=== PATIENT | female | born 1995 | race American Indian/Alaskan Native ===

== ENCOUNTER 2016-12-01 09:18 | Emergency (ER) | payer BC, MEDICAID ==
[2016-12-01 09:33] VITALS: BP 132/55
[2016-12-01 09:55] LABS: Basophils % (Auto) 0.8 % (0.0-1.8); Eosinophils % (Auto) 1.4 % (0.0-4.3); Hematocrit 34.7 % (30.3-42.9); Hemoglobin 11.6 gm/dl (10.1-14.3); Mean Corpuscular HGB Conc 34 % (30-34); Mean Corpuscular Hemoglobin 28 pg (28-32); Mean Corpuscular Volume 84 fl (79-97); Platelet Count 293 K/mm3 (140-440); Red Blood Count 4.15 M/mm3 (3.65-5.03); Red Cell Distribution Width 13.7 % (13.2-15.2); White Blood Count 5.6 K/mm3 (4.5-11.0)
[2016-12-01 10:11] LABS: Blood Urea Nitrogen 9 mg/dL (7-17); Calcium 8.8 mg/dL (8.4-10.2); Carbon Dioxide 25 mmol/L (22-30); Glucose 71 mg/dL (65-100)
[2016-12-01 10:12] LABS: Anion Gap 15 mmol/L; Chloride 101.4 mmol/L (98-107); Potassium 4.3 mmol/L (3.6-5.0); Sodium 137 mmol/L (137-145)
--- NOTE | 2016-12-01 11:03 | XRay Report ---
ROUTINE CHEST, TWO VIEWS: HISTORY: chest pain. The trachea, heart, mediastinal contour, lung patel and bony thorax are unremarkable. IMPRESSION: Unremarkable chest x-ray.
[2016-12-01] MEDS: ASPIRIN PO SCH ×2 (13:10→14:24)
[2016-12-01 13:53] LABS: Urine Drugs of Abuse Note Disclamer
[2016-12-01 14:07] LABS: Bacteria,Urine 1+ /HPF (Negative); Bilirubin,Urine NEG (Negative); Blood,Urine NEG (Negative); Ketones,Urine TR mg/dL (Negative); Leukocyte Esterase,Urine TR (Negative); Mucus,Urine 1+ /HPF; Nitrite,Urine NEG (Negative); Protein,Urine <15 mg/dL mg/dL (Negative); Urobilinogen,Urine < 2.0 mg/dL (<2.0)
--- NOTE | 2016-12-01 14:50 | Emergency Department Report ---
HPI - General Chief Complaint: Chest Pain Time Seen by Provider: 12/01/16 10:43 - HPI HPI: 21-year-old -[place] female presents to the ED with chest pain chest pain, onset 5 hours prior to evaluation while at rest, Location: mid chest Radiation: none, Severity now (0-10): 2, Severity at worst (0-10): 8 Duration: 5 minutes characterized as: sharp. The pain is relieved with aspirin, Patient denies exertional pain, patient denies pleuritic pain. Patient denies associated symptoms, such as nausea/vomiting, no diaphoresis, no shortness of breath. 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 - Surgical History Past Surgical History?: Yes Additional Surgical History: L Breast biopsy - Social History Smoking Status: Never Smoker - Medications Home Medications: Home Medications Medication Instructions Recorded Confirmed Last Taken Type Acetaminophen/Codeine 1 tab PO Q6H PRN 03/28/14 03/28/14 03/28/14 06:00 History [Acetaminophen-Codeine #3 TAB] Phenylephrine/Dm/Acetaminop/GG 20 ml PO Q4HR #180 ml 03/17/15 Unknown Rx [Mucinex Vdyq-Abx-Rtyhdzfwjg Lq] traMADol [Ultram] 50 mg PO Q6HR PRN #15 tablet 12/01/16 Unknown Rx ED Review of Systems ROS: Stated complaint: CHEST PAIN/VOMITTING /SHARP PAIN IN CHEST Other details as noted in HPI Comment: All other systems reviewed and negative Gastrointestinal: abdominal pain Physical Exam - Physical Exam Vital Signs: Vital Signs 12/01/16 12/01/16 09:29 10:36 Temperature 98.3 F Pulse Rate 82 Respiratory 16 18 Rate Blood Pressure 132/55 O2 Sat by Pulse 100 Oximetry ED Course Vital Signs 12/01/16 12/01/16 09:29 10:36 Temperature 98.3 F Pulse Rate 82 Respiratory 16 18 Rate Blood Pressure 132/55 O2 Sat by Pulse 100 Oximetry ED Medical Decision Making - Lab Data Result diagrams: 12/01/16 09:38 12/01/16 09:38 Critical care attestation.: If time is entered above; I have spent that time in minutes in the direct care of this critically ill patient, excluding procedure time. ED Disposition Clinical Impression: Chest pain Qualifiers: Chest pain type: unspecified Qualified Code(s): R07.9 - Chest pain, unspecified Disposition: DC- TO HOME OR SELFCARE Is pt being admited?: No Does the pt Need Aspirin: No Condition: Stable Instructions: Chest Pain (ED) Prescriptions: traMADol [Ultram] 50 mg PO Q6HR PRN #15 tablet PRN Reason: Pain Referrals: PRIMARY CARE,MD [Primary Care Provider] - 3-5 Days Forms: Work/School Release Form(ED)
== END 2016-12-01 14:55 | disposition home or self-care (01) ==
LOC: ED 09:18
DX: R07.9 Chest pain, unspecified (principal)
CPT/HCPCS: 36415; 71020; 80048; 80307; 81001; 84484; 85025; 85379; 93005; 93010

== ENCOUNTER 2018-10-19 22:55 | Emergency (ER) | payer MEDICAID ==
[2018-10-19] MEDS ORDERED: MORPHINE IV ONE (23:15)
[2018-10-19] MEDS ORDERED: ZOFRAN IV ONE (23:15)
--- NOTE | 2018-10-19 23:19 | Emergency Department Report ---
ED General Adult HPI - General Chief complaint: Urogenital-Female Stated complaint: VAGINAL PAIN/POST DILIVERY Time Seen by Provider: 10/19/18 23:09 Source: patient Mode of arrival: Ambulatory Limitations: No Limitations - History of Present Illness Initial comments: Patient is 23 years old female, four-day . Patient presented to the ER complaining of external hemorrhoid started after and get worse last night. Patient stated that it's very painful. Patient denied any fever or chills. No rectal bleeding. Severity scale (0 -10): 10 - Related Data Home Medications Medication Instructions Recorded Confirmed Last Taken Acetaminophen/Codeine 1 tab PO Q6H PRN 03/28/14 03/28/14 03/28/14 06:00 [Acetaminophen-Codeine #3 TAB] Previous Rx's Medication Instructions Recorded Last Taken Type Phenylephrine/Dm/Acetaminop/GG 20 ml PO Q4HR #180 ml 03/17/15 Unknown Rx [Mucinex Akpn-Unp-Ptzgopyfrl Lq] traMADol [Ultram] 50 mg PO Q6HR PRN #15 tablet 12/01/16 Unknown Rx Acetaminophen [Tylenol Extra 1,000 mg PO Q8H PRN #30 tablet 02/24/18 Unknown Rx Strength] Amoxicillin/Potassium Clav 1 each PO BID #20 tablet 02/24/18 Unknown Rx [Augmentin 875-125 Tablet] Metoclopramide [Reglan] 10 mg PO TID PRN #15 tab 02/24/18 Unknown Rx metroNIDAZOLE 0.75%(NF) [Metrogel 1 applicatio TP BID 5 Days tube 02/24/18 Unknown Rx 0.75% TOPICAL] Allergies Allergy/AdvReac Type Severity Reaction Status Date / Time No Known Allergies Allergy Verified 12/01/16 09:33 ED Review of Systems ROS: Stated complaint: VAGINAL PAIN/POST DILIVERY Other details as noted in HPI Comment: All other systems reviewed and negative Constitutional: denies: chills, fever Respiratory: denies: cough, orthopnea, shortness of breath, SOB with exertion Cardiovascular: denies: chest pain Gastrointestinal: other (hemorrhoid). 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 - Surgical History Past Surgical History?: Yes Additional Surgical History: L Breast biopsy - Social History Smoking Status: Never Smoker Substance Use Type: None - Medications Home Medications: Home Medications Medication Instructions Recorded Confirmed Last Taken Type Acetaminophen/Codeine 1 tab PO Q6H PRN 03/28/14 03/28/14 03/28/14 06:00 History [Acetaminophen-Codeine #3 TAB] Phenylephrine/Dm/Acetaminop/GG 20 ml PO Q4HR #180 ml 03/17/15 Unknown Rx [Mucinex Zxto-Cbk-Fuijvkkxog Lq] traMADol [Ultram] 50 mg PO Q6HR PRN #15 tablet 12/01/16 Unknown Rx Acetaminophen [Tylenol Extra 1,000 mg PO Q8H PRN #30 tablet 02/24/18 Unknown Rx Strength] Amoxicillin/Potassium Clav 1 each PO BID #20 tablet 02/24/18 Unknown Rx [Augmentin 875-125 Tablet] Metoclopramide [Reglan] 10 mg PO TID PRN #15 tab 02/24/18 Unknown Rx metroNIDAZOLE 0.75%(NF) [Metrogel 1 applicatio TP BID 5 Days tube 02/24/18 Unknown Rx 0.75% TOPICAL] ED Physical Exam - General Limitations: No Limitations General appearance: alert, in no apparent distress - Head Head exam: Present: atraumatic, normocephalic, normal inspection - Eye Eye exam: Present: normal appearance - ENT ENT exam: Present: normal exam, normal orophraynx, mucous membranes moist - Neck Neck exam: Present: normal inspection, full ROM. Absent: tenderness, meningismus, lymphadenopathy, thyromegaly - Respiratory Respiratory exam: Present: normal lung sounds bilaterally - Cardiovascular Cardiovascular Exam: Present: regular rate, normal rhythm, normal heart sounds - GI/Abdominal GI/Abdominal exam: Present: soft, normal bowel sounds. Absent: distended, tenderness, guarding, rebound, rigid, organomegaly, mass, pulsatile mass - Rectal Rectal exam: Present: hemorrhoids (huge external hemorrhoid, tender to touch. No active bleeding.) - Extremities Exam Extremities exam: Present: normal inspection, full ROM, normal capillary refill - Back Exam Back exam: Present: normal inspection, full ROM. Absent: CVA tenderness (R), CVA tenderness (L) - Neurological Exam Neurological exam: Present: alert, oriented X3, CN II-XII intact - Psychiatric Psychiatric exam: Present: normal mood - Skin Skin exam: Present: warm, intact, normal color ED Course Vital Signs 10/19/18 10/19/18 10/20/18 23:07 23:15 00:30 Temperature 97.9 F Pulse Rate 100 H Respiratory 16 Rate Blood Pressure 114/58 108/59 Blood Pressure 133/81 [Left] O2 Sat by Pulse 100 99 99 Oximetry 10/20/18 10/20/18 00:32 01:00 Temperature Pulse Rate Respiratory 16 Rate Blood Pressure 105/67 Blood Pressure [Left] O2 Sat by Pulse 99 99 Oximetry - Procedure Description Procedures done: External hemorrhoid thrombectomy. Area cleaned with Betadine and a possible aseptic condition. Patient given lidocaine 2%. Using #11 blade elliptical incision is made with evacuation of the thrombus. Patient stated that she feels much better after that. No complications. ED Medical Decision Making - Lab Data Result diagrams: 10/19/18 23:24 10/19/18 23:24 Critical care attestation.: If time is entered above; I have spent that time in minutes in the direct care of this critically ill patient, excluding procedure time. ED Disposition Clinical Impression: Hemorrhoid Disposition: DC-01 TO HOME OR SELFCARE Is pt being admited?: No Condition: Stable Instructions: Hemorrhoids (ED) Referrals: KARTIK PHIPPS MD [Primary Care Provider] - 3-5 Days LAILA PARKINSON MD [Staff Physician] - 3-5 Days
[2018-10-19 23:34] LABS: Hematocrit 33.1 % (30.3-42.9); Hemoglobin 10.9 gm/dl (10.1-14.3); Mean Corpuscular HGB Conc 33 % (30-34); Mean Corpuscular Volume 82 fl (79-97); Platelet Count 342 K/mm3 (140-440); Red Blood Count 4.02 M/mm3 (3.65-5.03); Red Cell Distribution Width 16.3 % (13.2-15.2)
[2018-10-19 23:53] LABS: BUN/Creatinine Ratio 13; Blood Urea Nitrogen 8 mg/dL (7-17); Calcium 8.8 mg/dL (8.4-10.2); Hemolysis Index 7
[2018-10-20] MEDS ORDERED: SUBLIMAZE ONE (00:27)
[2018-10-20] MEDS ORDERED: SUBLIMAZE IV ONE ×2 (00:27)
[2018-10-20] MEDS ORDERED: TORADOL IV ONE ×2 (01:13→05:29)
[2018-10-20] MEDS ORDERED: TORADOL ONE ×2 (01:13→05:26)
[2018-10-20] MEDS ORDERED: XYLOCAINE 2% INFILTRATI ONE ×2 (01:17)
[2018-10-20] MEDS ORDERED: NACL 0.9% 500 ML IR ONE (02:22)
[2018-10-20] MEDS ORDERED: NACL 0.9% IR ONE (02:22)
[2018-10-20 05:44] VITALS: BP 127/61
== END 2018-10-20 05:45 | disposition home or self-care (01) ==
LOC: ED 22:55
DX: O87.2 Hemorrhoids in the puerperium (principal); Z79.899 Other long term (current) drug therapy
CPT/HCPCS: 36415; 46083; 80048; 85027; 96374; 96375; 99283; J1885; J2270; J2405; J3010

== ENCOUNTER 2018-10-21 21:44 | Emergency (ER) | payer BC, MEDICAID ==
--- NOTE | 2018-10-21 21:52 | Emergency Department Report ---
Blank Doc - Documentation Documentation: This is a 23-year-old female that presents with hemorrhoids. Patient is postop from vaginal delivery. Was started on antibiotics for thrombus hemorrhoids. This initial assessment/diagnostic orders/clinical plan/treatment(s) is/are subject to change based on patient's health status, clinical progression and re- assessment by fellow clinical providers in the ED. Further treatment and workup at subsequent clinical providers discretion. Patient/guardians urged not to elope from the ED as their condition may be serious if not clinically assessed and managed. Initial orders include: 1- Patient sent to MAIN ED for further evaluation and treatment 2- labs
[2018-10-21 22:45] LABS: Basophils # (Auto) 0.1 K/mm3 (0.0-0.1); Basophils % (Auto) 0.8 % (0.0-1.8); Eosinophils # (Auto) 0.1 K/mm3 (0.0-0.4); Eosinophils % (Auto) 2.1 % (0.0-4.3); Hematocrit 35.9 % (30.3-42.9); Hemoglobin 11.6 gm/dl (10.1-14.3); Lymphocytes # (Auto) 2.1 K/mm3 (1.2-5.4); Lymphocytes % (Auto) 32.3 % (13.4-35.0); Mean Corpuscular HGB Conc 33 % (30-34); Mean Corpuscular Volume 82 fl (79-97); Monocytes # (Auto) 0.5 K/mm3 (0.0-0.8); Platelet Count 341 K/mm3 (140-440); Red Blood Count 4.38 M/mm3 (3.65-5.03)
[2018-10-21] MEDS ORDERED: MORPHINE IM ONE (23:07)
[2018-10-21] MEDS ORDERED: ZOFRAN IM ONE (23:07)
--- NOTE | 2018-10-21 23:18 | Emergency Department Report ---
ED General Adult HPI - General Chief complaint: Rectal Pain Stated complaint: HEMORROIDS Time Seen by Provider: 10/21/18 21:52 Source: patient Mode of arrival: Ambulatory Limitations: No Limitations - History of Present Illness Initial comments: Patient is 23 years old female, 6 day . Patient was seen here 2 days ago for hemorrhoids and had thrombectomy of the hemorrhoid done. Patient stated that her pain is much better but she noticed small greenish discharge on the gauze. Patient was discharged with ciprofloxacin. Patient denied any fever or chills. No nausea or vomiting. - Related Data Home Medications Medication Instructions Recorded Confirmed Last Taken Acetaminophen/Codeine 1 tab PO Q6H PRN 03/28/14 03/28/14 03/28/14 06:00 [Acetaminophen-Codeine #3 TAB] Previous Rx's Medication Instructions Recorded Last Taken Type Phenylephrine/Dm/Acetaminop/GG 20 ml PO Q4HR #180 ml 03/17/15 Unknown Rx [Mucinex Yzjl-Xkx-Titifcxver Lq] traMADol [Ultram] 50 mg PO Q6HR PRN #15 tablet 12/01/16 Unknown Rx Acetaminophen [Tylenol Extra 1,000 mg PO Q8H PRN #30 tablet 02/24/18 Unknown Rx Strength] Amoxicillin/Potassium Clav 1 each PO BID #20 tablet 02/24/18 Unknown Rx [Augmentin 875-125 Tablet] Metoclopramide [Reglan] 10 mg PO TID PRN #15 tab 02/24/18 Unknown Rx metroNIDAZOLE 0.75%(NF) [Metrogel 1 applicatio TP BID 5 Days tube 02/24/18 Unknown Rx 0.75% TOPICAL] Ciprofloxacin HCl [Ciprofloxacin 500 mg PO Q12HR #14 tab 10/20/18 Unknown Rx TAB] HYDROcodone/APAP 5-325 [[place] 1 each PO Q6HR PRN #14 tablet 10/20/18 Unknown Rx 5/325] Ondansetron [Zofran Odt] 4 mg PO Q8HR PRN #14 tab.rapdis 10/20/18 Unknown Rx Allergies Allergy/AdvReac Type Severity Reaction Status Date / Time No Known Allergies Allergy Verified 12/01/16 09:33 ED Review of Systems ROS: Stated complaint: HEMORROIDS Other details as noted in HPI Comment: All other systems reviewed and negative Constitutional: denies: chills, fever Respiratory: denies: cough Cardiovascular: denies: chest pain Gastrointestinal: denies: abdominal pain, nausea, vomiting 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 - Surgical History Past Surgical History?: Yes Additional Surgical History: L Breast biopsy - Social History Smoking Status: Never Smoker Substance Use Type: None - Medications Home Medications: Home Medications Medication Instructions Recorded Confirmed Last Taken Type Acetaminophen/Codeine 1 tab PO Q6H PRN 03/28/14 03/28/14 03/28/14 06:00 History [Acetaminophen-Codeine #3 TAB] Phenylephrine/Dm/Acetaminop/GG 20 ml PO Q4HR #180 ml 03/17/15 Unknown Rx [Mucinex Gogs-Jqv-Jlisxyiwwp Lq] traMADol [Ultram] 50 mg PO Q6HR PRN #15 tablet 12/01/16 Unknown Rx Acetaminophen [Tylenol Extra 1,000 mg PO Q8H PRN #30 tablet 02/24/18 Unknown Rx Strength] Amoxicillin/Potassium Clav 1 each PO BID #20 tablet 02/24/18 Unknown Rx [Augmentin 875-125 Tablet] Metoclopramide [Reglan] 10 mg PO TID PRN #15 tab 02/24/18 Unknown Rx metroNIDAZOLE 0.75%(NF) [Metrogel 1 applicatio TP BID 5 Days tube 02/24/18 Unknown Rx 0.75% TOPICAL] Ciprofloxacin HCl [Ciprofloxacin 500 mg PO Q12HR #14 tab 10/20/18 Unknown Rx TAB] HYDROcodone/APAP 5-325 [[place] 1 each PO Q6HR PRN #14 tablet 10/20/18 Unknown Rx 5/325] Ondansetron [Zofran Odt] 4 mg PO Q8HR PRN #14 tab.rapdis 10/20/18 Unknown Rx ED Physical Exam - General Limitations: No Limitations General appearance: alert, in no apparent distress - Head Head exam: Present: atraumatic, normocephalic, normal inspection - Eye Eye exam: Present: normal appearance - Respiratory Respiratory exam: Present: normal lung sounds bilaterally - Cardiovascular Cardiovascular Exam: Present: regular rate - GI/Abdominal GI/Abdominal exam: Present: soft. Absent: distended, tenderness, guarding, rebound - Rectal Rectal exam: Present: hemorrhoids (hemorrhoid size decreased from last time I saw her. No clinical evidence of infection.) - Extremities Exam Extremities exam: Present: normal inspection - Back Exam Back exam: Present: normal inspection - Neurological Exam Neurological exam: Present: alert, oriented X3, CN II-XII intact - Skin Skin exam: Present: warm, intact, normal color ED Course Vital Signs 10/21/18 10/21/18 21:47 21:49 Temperature 98.7 F 98.7 F Pulse Rate 100 H 106 H Respiratory 18 18 Rate Blood Pressure 130/78 130/78 O2 Sat by Pulse 99 99 Oximetry ED Medical Decision Making - Lab Data Result diagrams: 10/21/18 22:19 Critical care attestation.: If time is entered above; I have spent that time in minutes in the direct care of this critically ill patient, excluding procedure time. ED Disposition Clinical Impression: Hemorrhoid Disposition: DC-01 TO HOME OR SELFCARE Is pt being admited?: No Condition: Stable Instructions: Hemorrhoids (ED) Referrals: LAILA PARKINSON MD [Staff Physician] - 3-5 Days
[2018-10-21 23:33] LABS: BUN/Creatinine Ratio 10; Blood Urea Nitrogen 8 mg/dL (7-17); Hemolysis Index 1
[2018-10-22 00:18] VITALS: BP 124/73
== END 2018-10-22 00:37 | disposition home or self-care (01) ==
LOC: ED 21:44
DX: O87.2 Hemorrhoids in the puerperium (principal); Z98.890 Other specified postprocedural states; Z79.899 Other long term (current) drug therapy
CPT/HCPCS: 36415; 80048; 85025; 96372; 99283; J2270; J2405

== ENCOUNTER 2019-04-16 23:41 | Emergency (ER) | payer BC, MEDICAID ==
[2019-04-17 00:22] LABS: Basophils # (Auto) 0.1 K/mm3 (0.0-0.1); Basophils % (Auto) 0.9 % (0.0-1.8); Eosinophils # (Auto) 0.1 K/mm3 (0.0-0.4); Hematocrit 33.8 % (30.3-42.9); Hemoglobin 11.3 gm/dl (10.1-14.3); Lymphocytes # (Auto) 3.3 K/mm3 (1.2-5.4); Lymphocytes % (Auto) 40.5 % (13.4-35.0); Mean Corpuscular HGB Conc 34 % (30-34); Mean Corpuscular Volume 85 fl (79-97); Monocytes # (Auto) 0.4 K/mm3 (0.0-0.8); Monocytes % (Auto) 4.9 % (0.0-7.3); Platelet Count 314 K/mm3 (140-440); Red Blood Count 3.99 M/mm3 (3.65-5.03)
[2019-04-17 00:44] LABS: BUN/Creatinine Ratio 12; Blood Urea Nitrogen 6 mg/dL (7-17); Calcium 9.3 mg/dL (8.4-10.2); Hemolysis Index 2
--- NOTE | 2019-04-17 03:32 | Emergency Department Report ---
ED Female HPI - General Chief complaint: Abdominal Pain Stated complaint: ABD PAIN Time Seen by Provider: 04/17/19 02:01 Source: patient Mode of arrival: Ambulatory Limitations: No Limitations - History of Present Illness Initial comments: 24-year-old Afro-[place] female mother of one position was department complaining of pelvic pain and mild vaginal bleeding associated with her she thinks she is about 5 weeks. She denies any excessive amount of cramping suprapubic area and spotting. No fever, chills, sweats. No hemoptysis or hematemesis nor hematochezia. No diarrhea or constipation. MD Complaint: vaginal bleeding, pelvic pain Location: suprapubic Radiation: non-radiating Severity: mild Quality: cramping Consistency: constant Improves with: none Worsens with: none Are you Now?: Yes Associated Symptoms: vaginal bleeding, abdominal pain. denies: headaches, hematuria, rash, shortness of breath, syncope, weakness - Related Data Sexually active: Yes Home Medications Medication Instructions Recorded Confirmed Last Taken Acetaminophen/Codeine 1 tab PO Q6H PRN 03/28/14 03/28/14 03/28/14 06:00 [Acetaminophen-Codeine #3 TAB] Previous Rx's Medication Instructions Recorded Last Taken Type Phenylephrine/Dm/Acetaminop/GG 20 ml PO Q4HR #180 ml 03/17/15 Unknown Rx [Mucinex Alrs-Foz-Ryyqfbeniv Lq] traMADoL [Ultram] 50 mg PO Q6HR PRN #15 tablet 12/01/16 Unknown Rx Acetaminophen [Tylenol Extra 1,000 mg PO Q8H PRN #30 tablet 02/24/18 Unknown Rx Strength] Amoxicillin/Potassium Clav 1 each PO BID #20 tablet 02/24/18 Unknown Rx [Augmentin 875-125 Tablet] Metoclopramide [Reglan] 10 mg PO TID PRN #15 tab 02/24/18 Unknown Rx metroNIDAZOLE 0.75%(NF) [Metrogel 1 applicatio TP BID 5 Days tube 02/24/18 Unknown Rx 0.75% TOPICAL] Ciprofloxacin HCl [Ciprofloxacin 500 mg PO Q12HR #14 tab 10/20/18 Unknown Rx TAB] HYDROcodone/APAP 5-325 [[place] 1 each PO Q6HR PRN #14 tablet 10/20/18 Unknown Rx 5/325] Ondansetron [Zofran Odt] 4 mg PO Q8HR PRN #14 tab.rapdis 10/20/18 Unknown Rx metroNIDAZOLE [Flagyl] 500 mg PO Q12HR #14 tab 10/21/18 Unknown Rx Allergies Allergy/AdvReac Type Severity Reaction Status Date / Time latex Allergy Hives Verified 04/16/19 23:46 ED Review of Systems ROS: Stated complaint: ABD PAIN Other details as noted in HPI Comment: All other systems reviewed and negative ED Past Medical Hx - Past Medical History Hx Hypertension: No Hx Diabetes: No Hx Deep Vein Thrombosis: No Hx Renal Disease: No Hx Sickle Cell Disease: No Hx Seizures: No Hx Asthma: No Hx HIV: No 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 - Surgical History Additional Surgical History: L Breast biopsy - Social History Smoking Status: Never Smoker Substance Use Type: None - Medications Home Medications: Home Medications Medication Instructions Recorded Confirmed Last Taken Type Acetaminophen/Codeine 1 tab PO Q6H PRN 03/28/14 03/28/14 03/28/14 06:00 History [Acetaminophen-Codeine #3 TAB] Phenylephrine/Dm/Acetaminop/GG 20 ml PO Q4HR #180 ml 03/17/15 Unknown Rx [Mucinex Wece-Pkd-Zudwzdfwhq Lq] traMADoL [Ultram] 50 mg PO Q6HR PRN #15 tablet 12/01/16 Unknown Rx Acetaminophen [Tylenol Extra 1,000 mg PO Q8H PRN #30 tablet 02/24/18 Unknown Rx Strength] Amoxicillin/Potassium Clav 1 each PO BID #20 tablet 02/24/18 Unknown Rx [Augmentin 875-125 Tablet] Metoclopramide [Reglan] 10 mg PO TID PRN #15 tab 02/24/18 Unknown Rx metroNIDAZOLE 0.75%(NF) [Metrogel 1 applicatio TP BID 5 Days tube 02/24/18 Unknown Rx 0.75% TOPICAL] Ciprofloxacin HCl [Ciprofloxacin 500 mg PO Q12HR #14 tab 10/20/18 Unknown Rx TAB] HYDROcodone/APAP 5-325 [[place] 1 each PO Q6HR PRN #14 tablet 10/20/18 Unknown Rx 5/325] Ondansetron [Zofran Odt] 4 mg PO Q8HR PRN #14 tab.rapdis 10/20/18 Unknown Rx metroNIDAZOLE [Flagyl] 500 mg PO Q12HR #14 tab 10/21/18 Unknown Rx ED Physical Exam - General Limitations: No Limitations General appearance: alert, in no apparent distress - Head Head exam: Present: atraumatic, normocephalic - Eye Eye exam: Present: normal appearance, PERRL, EOMI Pupils: Present: normal accommodation - ENT ENT exam: Present: normal exam, normal orophraynx, mucous membranes moist, TM's normal bilaterally - Neck Neck exam: Present: normal inspection, full ROM - Respiratory Respiratory exam: Present: normal lung sounds bilaterally. Absent: respiratory distress, wheezes, rales, chest wall tenderness, accessory muscle use - Cardiovascular Cardiovascular Exam: Present: regular rate, normal rhythm. Absent: systolic murmur, diastolic murmur, rubs, gallop - GI/Abdominal GI/Abdominal exam: Present: soft, normal bowel sounds - Extremities Exam Extremities exam: Present: normal inspection - Back Exam Back exam: Present: normal inspection. Absent: CVA tenderness (R), CVA tenderness (L), paraspinal tenderness - Neurological Exam Neurological exam: Present: alert, oriented X3, CN II-XII intact - Psychiatric Psychiatric exam: Present: normal affect, normal mood - Skin Skin exam: Present: warm, dry, intact, normal color. Absent: rash ED Course Vital Signs 04/16/19 04/16/19 23:48 23:51 Temperature 98.5 F 98.5 F Pulse Rate 91 H 91 H Respiratory 20 20 Rate Blood Pressure 122/77 122/77 O2 Sat by Pulse 99 99 Oximetry ED Medical Decision Making - Lab Data Result diagrams: 04/17/19 00:07 04/17/19 00:07 - Radiology Data Radiology results: report reviewed [address] [address] Ultrasound Report Signed Patient: JACQUELINE CONWAY MR#: [id number] : 1995 Acct:[id number] Age/Sex: 24 / F ADM Date: 04/16/19 Loc: ED Attending Dr: Ordering Physician: CELI ROUSE Date of Service: 04/17/19 Procedure(s): US OB transvaginal Accession Number(s): [id number] cc: CELI ROUSE US OB <= 14 weeks fetus, US OB transvaginal INDICATION / CLINICAL INFORMATION: Vaginal bleeding pain. COMPARISON: None available. FINDINGS: Transabdominal and transvaginal imaging was performed. There is an intrauterine gestational sac with yolk sac and pole. Hines- rump length is 2.5 mm (5 weeks, 6 days). heart rate is 177. There is a subcentimeter hypoechoic focus adjacent to the gestational sac inferiorly consistent with very small subchorionic hemorrhage. There is a 1.8 cm uterine fibroid. Ovaries are symmetric. There is a 2.5 cm left ovarian cyst. No free fluid. IMPRESSION: 1. Single viable intrauterine with sonographic gestational age of 5 weeks, 6 days. 2. Very small subchorionic hemorrhage. 3. Small uterine fibroid. Signer Name: Gumaro Huerta MD Signed: 04/17/2019 3:28 AM Workstation Name: [id number] Transcribed By: JEFFREY Dictated By: Gumaro Huerta MD Electronically Authenticated By: Gumaro Huerta MD Signed Date/Time: 04/17/19327 DD/ 5 - Medical Decision Making This patient presents with vaginal bleeding in the first trimester. DDX includes ectopic, IUP, threatened/inevitable , along with completed . Patient is HDS and without a history of coagulopathy or infectious symptoms. Doubt alternate acute emergent pathology. Plan: bHCG, +/- basic labs, type and screen, which shows a uterine fibroid as well as a heart rate of 177 no obvious life-threatening processes were raji cribed this point she is having a threatening miscarriage and Critical care attestation.: If time is entered above; I have spent that time in minutes in the direct care of this critically ill patient, excluding procedure time. ED Disposition Clinical Impression: Threatened miscarriage in early , Bleeding in early Disposition: DC-01 TO HOME OR SELFCARE Is pt being admited?: No Does the pt Need Aspirin: No Condition: Stable Instructions: Abdominal Pain (ED), (ED), Threatened Miscarriage (ED) Additional Instructions: You have been evaluated in the [facility] Emergency Department today for your vaginal bleeding during first trimester . Your evaluation suggests that your reason for your symptoms are are still unclear. Your ultrasound was added to your discharged to use review however it showed no acute emergency processes and also showed the temperature was currently healthy. Please follow up with your obstetrics physician within two days for reevaluation and at one time the movement repeat her hCG or repeat an ultrasound.. Please follow up with your card cleaner within 2 days. Return to the Emergency Department if you experience worsening or uncontrolled bleeding, shortness of breath, feeling lightheaded, chest tightness, abdominal cramping, severe abdominal pain, fevers,vomiting, or for any other concerning symptoms. Thank you for choosing us for your care. Referrals: [facility] [Provider Group] - 2-3 Days
--- NOTE | 2019-04-17 03:33 | Ultrasound Report ---
US OB <= 14 weeks fetus, US OB transvaginal INDICATION / CLINICAL INFORMATION: Vaginal bleeding pain. COMPARISON: None available. FINDINGS: Transabdominal and transvaginal imaging was performed. There is an intrauterine gestational sac with yolk sac and pole. Metzger-rump length is 2.5 mm (5 weeks, 6 days). heart rate is 177. There is a subcentimeter hypoechoic focus adjacent to the g estational sac inferiorly consistent with very small subchorionic hemorrhage. There is a 1.8 cm uteri ne fibroid. Ovaries are symmetric. There is a 2.5 cm left ovarian cyst. No free fluid. IMPRESSION: 1. Single viable intrauterine with sonographic gestational age of 5 weeks, 6 days. 2. Very small subchorionic hemorrhage. 3. Small uterine fibroid. Signer Name: Gumaro Huerta MD Signed: 04/17/2019 3:28 AM Workstation Name: [id number]
[2019-04-17 04:04] LABS: Bacteria,Urine 1+ /HPF (Negative); Bilirubin,Urine NEG (Negative); Blood,Urine NEG (Negative); Color,Urine Yellow (Yellow); Mucus,Urine 1+ /HPF; Protein,Urine <15 mg/dL mg/dL (Negative); Urobilinogen,Urine < 2.0 mg/dL (<2.0)
[2019-04-17 04:28] VITALS: BP 117/65
== END 2019-04-17 04:28 | disposition home or self-care (01) ==
LOC: ED 23:41
DX: O20.0 Threatened abortion (principal); Z98.890 Other specified postprocedural states; Z79.2 Long term (current) use of antibiotics; Z79.899 Other long term (current) drug therapy; Z91.040 Latex allergy status; Z3A.01 Less than 8 weeks gestation of pregnancy
CPT/HCPCS: 36415; 76801; 76817; 80048; 81001; 84702; 84703; 85025; 86900; 86901